=== PATIENT | female | born 1990 | race Caucasian/White ===

== ENCOUNTER 2022-12-06 00:28 | Emergency (ER) | payer SELFPAY ==
[2022-12-06] MEDS ORDERED: methylPREDNISolone Sod Succ/PF 125 MG/2 ML VIAL ONE (01:51)
[2022-12-06] MEDS ORDERED: Ipratropium/Albuterol 3 ML NEB ONE ×3 (02:19→03:35)
[2022-12-06 02:41] LABS: SARS-CoV-2 NAA Rapid Test Not Detected (NotDetected)
== END 2022-12-06 05:05 | disposition home or self-care (01) ==
LOC: CSHERS 00:28
DX: J98.01 Acute bronchospasm (principal); Z20.822 Contact with and (suspected) exposure to COVID-19; F17.210 Nicotine dependence, cigarettes, uncomplicated
CPT/HCPCS: 71045; 87804; 96372; J2930; J7620; U0002